=== PATIENT | male | born 2000 | race Caucasian/White ===

== ENCOUNTER 2025-06-07 15:24 | Emergency (ER) | payer OTHER, SELFPAY ==
[2025-06-07 15:25] VITALS: BP 159/85; PULSE 85; RESP 18; TEMP 36.6; O2SAT 99
--- OUTSIDE RECORDS SUMMARY | 2025-06-07 15:26 | XMS_ITS | Clinical Summary ---
Author Organization [facility] [employer] Address [address] [facility] [place] [address] Care Team Providers Care Carburetor Rebuilder Name Role Phone Unavailable Primary Care Provider Unavailabl e Source Comments [facility],non-owned Affiliates and Associated Physician Practices is amultiple site organization consisting of ambulatory clinics and hospital sitesin [place], [place], [place] and [place]. This disclosure is being madepursuant to the Care Everywhere program and may not contain all information available regarding this patient. Last updated 18.[facility] [employer] Allergies Active Allergy Reactions Criticality Noted Date Comments Cephalexin 11/01/2017 Sulfamethoxazole W-Trimethoprim 02/2017 Medications * Be aware that medications may not be up to date on this document. Alwaysverify current medications with the patient. 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 Gender Identity Not on file Sexual Orientation Not on file Last Filed Vital Signs Vital Sign Reading Time Taken Comments Blood Pressure 126/60 11/01/2017 2:08 PM REGIONAL TRUCK DRIVER Pulse 94 11/01/2017 2:08 PM REGIONAL TRUCK DRIVER Temperature 37.5 C (99.5 F) 11/01/2017 2:08 PM REGIONAL TRUCK DRIVER Respiratory Rate 16 11/01/2017 2:08 PM REGIONAL TRUCK DRIVER Oxygen Saturation 98% 11/01/2017 2:08 PM REGIONAL TRUCK DRIVER Inhaled Oxygen Concentration - - Weight 72.6 kg (160 lb) 11/01/2017 2:08 PM REGIONAL TRUCK DRIVER Height 177.8 cm (5' 10) 11/01/2017 2:08 PM REGIONAL TRUCK DRIVER Body Mass Index 22.96 11/01/2017 2:08 PM REGIONAL TRUCK DRIVER Plan of Treatment Health Maintenance Due Date Last Done Comments HIV SCREENING 2013 HPV VACCINE (1 - Male 3-dose series) 2013 HEPATITIS C SCREENING 08/14/2016 DTAP/TDAP/TD VACCINES (1 - Tdap) 2017 HEPATITIS B VACCINE (1 of 3 - 19+ 3-dose series) 2017 COVID-19 VACCINE (1 - 2023-2 5 season) 2024 DEPRESSION SCREENING 11/29/2024 INFLUENZA VACCINE (Season Ended) 2025 ZOSTER VACCINE (1 of 2) 2048 HIB VACCINE Aged Out No longer eligi ble based on patient's age to complete this topic MENINGOCOCCAL (Group B) VACC INE SHARED DECISION-MAKING Aged Out No longer eligibl e based on patient's age to complete this topic MENINGOCOCCAL GROUPS A/C/Y/W VACCINE Aged Out No longer eligible b ased on patient's age to complete this topic PNEUMOCOCCAL VACCINE Aged Out No long er eligible based on patient's age to complete this topic Insurance [facility]
--- OUTSIDE RECORDS SUMMARY | 2025-06-07 15:26 | XMS_ITS | Clinical Summary ---
Author Organization [facility] Address [address] [place], [place] [id number] Care Team Providers Care Cosmetic Assembler Name Role Phone Kirti Freedman Nicki [facility] Primary Care Provider + Social History Tobacco Use Types Packs/Day Years Used Date Smoking Tobacco: Never Assessed Sex and Gender Information Value Date Recorded Sex Assigned at Not on file Legal Sex Male 7:55 PM CDT Gender Identity Not on file Sexual Orientation Not on file Plan of Treatment Health Maintenance Due Date Last Done Comments Annual Physical 2001 HPV Vaccines (1 - Male 3-dose series) 2013 Hepatitis C 2016 DTaP, Tdap and Td Vaccines (7 - Td or Tdap) 06/17/2020 06/17/2010, 04/14/2004, 12/04/1999, Additional history exists COVID-19 Vaccine ( season) 2024 Hepatitis B Vaccines Completed 02/17/1999, 1998, 1998 Meningococcal Vaccine Completed 05/28/2016, 010 Meningococcal B Vaccine Aged Out No l onger eligible based on patient's age to complete this topic Pneumococcal Vaccine: Pediatrics (0 to 5 Years) and At-Risk Patients (6 to 49 Years) Aged Out No longer eligible based on patient's age to complete this topic RSV Immunizations Under 20 Months Aged Out No longer eligible based on patient's age to complete this topic Insurance [facility] Care Teams Cosmetic Assembler Relationship Specialty Start Date End Date Kirti Freedman, [facility]- [address], [address] [place] [id number] PCP - General Nurse Practitioner Family 09/20/2305/29
--- OUTSIDE RECORDS SUMMARY | 2025-06-07 15:26 | XMS_ITS | Referral Summary ---
Author Organization [facility] [address] Address [address] [place] [address] Phone Care Team Providers Care Lockstitch Tunnel Elastic Operator Name Role Phone Abner Pierre MD Primary Care Provider +1- [phone] Allergies Active Allergy Reactions Criticality Noted Date Comments Cefprozil Hives Reaction: Hives, Clindamycin Rash Reaction: Rash, Penicillins Rash Medium 11/08/2017 Sulfamethoxazole Other (See comments) Reaction: little red bumps, Trimethoprim Other (See comments) Reaction: little red bumps, Medications No known medications Active Problems Problem Noted Date Diagnosed Date Routine physical examination 09/30/2017 Tremors of nervous system 09/30/2017 Acne vulgaris 09/30/2017 Immunizations Immunization Administration Dates Next Due DTaP / HiB 12/04/1999 DTaP 5 Pertussis 04/14/2004,02/17/1999, 9,1998 Hep B, Adolescent or Pediatric 02/17/1999,1997,1998 Hib (HbOC) 02/17/1999,1998,1998 IPV 04/14/2004,12/04/1999,1998 ,1998 MMR 04/14/2004,08/25/1999 Meningococcal MCV4P (Menactra) 05/28/2016,2009 Tdap 06/17/2010 Varicella 08/25/1999 Social History Tobacco Use Types Packs/Day Years Used Date Smoking Tobacco: Never Smokeless Tobacco: Never Personal Safety Answer Date Recorded Getting School Help Needed Not on file 02/12 Sex and Gender Information Value Date Recorded Sex Assigned at Not on file 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 Gender Identity Not on file Sexual Orientation Not on file Last Filed Vital Signs Vital Sign Reading Time Taken Comments Blood Pressure 120/68 09/30/2017 11:46 AM CDT Pulse 70 03/22/2019 2:31 PM CDT Temperature 36.5 C (97.7 F) 03/22/2019 2:31 PM CDT Respiratory Rate 18 03/22/2019 2:31 PM CDT Oxygen Saturation 98% 03/22/2019 2:31 PM CDT Inhaled Oxygen Concentration - - Weight 79.8 kg (176 lb) 03/22/2019 2:31 PM CDT Height 175.9 cm (5' 9.25) 09/30/2017 11:46 AM C DT Body Mass Index 25.8 09/30/2017 11:46 AM CDT Plan of Treatment Not on file Insurance [employer] Care Teams Lockstitch Tunnel Elastic Operator Relationship Specialty Start Date End Date Abner Pierre MD [address] [place] [address] PCP - General 05/18/17
--- OUTSIDE RECORDS SUMMARY | 2025-06-07 15:26 | XMS_ITS | Clinical Summary ---
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
[2025-06-07] MEDS: TETRACAINE HCL 0.5% OPHTH SOLN 4 ML BTL 1 DROP EACH EYE (15:31)
[2025-06-07] MEDS: FLUORESCEIN SOD 1 MG/STRIP EACH EYE (15:31)
--- NOTE | 2025-06-07 15:40 | ED.EYEPROB ---
HPI - Eye Problem General Chief complaint: Eye Problems Stated complaint: bleach in eye Time Seen by Provider: 06/07/25 15:25 Source: patient Mode of arrival: ambulatory History of Present Illness HPI Narrative: this is a 24-year-old male that was splashed with bleach in his eyes bilaterally and patient did go to the Eye station irrigated extensively and currently is having some redness and irritation with no drainage no blurry vision no visual defects. chief complaint: eye pain and eye redness Onset (ago): hour(s) Onset description: sudden Location: both eyes Eye Symptoms: burning and redness Place: work Severity: mild Related Data Allergies Allergy/AdvReac Type Severity Reaction Status Date / Time No Known Allergies Allergy Verified 06/07/25 15:25 Review of Systems Review of Systems: All systems reviewed & are unremarkable except as noted in HPI and below PMFSH Past Medical History Medical History Lipoma of right lower extremity Essential tremor Social History Social History Smoking status: Never smoker Alcohol intake: current Drinks per week: 1 Substance use: never Do You Feel Safe in your Home?: Yes Lack of Transportation: No Lack of Food: Never True Current Housing: I Have Housing Concerned About Future Housing: No Difficulty Paying Gas/Electric Bills: No Difficulty Paying for Meds: No Currently Unemployed: No Education: Bachelor's Degree Difficulty w/ Childcare or Family Care: No Living arrangements: with family Occupation/Education: occupation Gender identity (if verbalized by the patient): Male Sexual Orientation (if Verbalized by the Patient): Straight or Heterosexual Spiritual care concerns: No Agree to blood products: Yes Exam Const: General: healthy appearing and no acute distress Nutritional Appearance: well nourished Orientation/consciousness: patient oriented x3 Limitations: no limitations HENMT: Head: normal to inspection Eyes: Conjunctivae: conjunctival abnormality Direct Ophthalmoscopy: no photophobia Neck: Neck: normal visual inspection Chest: Chest palpation & inspection: normal inspection of the chest Resp: Effort & Inspection: normal respiratory effort Auscultation: clear to auscultation bilaterally Cardio: Rate: regular rate Rhythm: regular rhythm Skin: General skin exam: normal color Rashes: no rashes Wounds: no wounds Neuro: General: patient oriented x3 Cranial nerves: Yes Nystagmus not present Extrem: General: normal to inspection Course Course Emergency Course: Patient had tetracaine in bilateral eyes and fluorescein stain and black light did not show any corneal abrasions will send patient home with some antibiotic eyedrops and follow up with his primary care physician. Vital Signs Vital signs: Vital Signs Temperature 36.6 C 06/07/25 15:25 Pulse Rate 85 06/07/25 15:25 Respiratory Rate 18 06/07/25 15:25 Blood Pressure 159/85 H 06/07/25 15:25 Pulse Oximetry 99 06/07/25 15:25 Oxygen Delivery Room Air 06/07/25 15:25 Temperature 36.6 C 06/07/25 15:25 Pulse Rate 85 06/07/25 15:25 Respiratory Rate 18 06/07/25 15:25 Blood Pressure 159/85 H 06/07/25 15:25 Pulse Oximetry 99 06/07/25 15:25 Oxygen Delivery Room Air 06/07/25 15:25 Procedures FB Removal Eye Foreign Body #1: Foreign Body Removal Date: 06/07/25 Time Out performed: Yes Location: eye (L) and eye (R) Topical anesthetic used: tetracaine Foreign body: other ( Bleach) Technique: irrigation and eye wash bottle Procedure performed under: direct visualization with magnification Critical Care Time Critical Care Time Critical Care Time: No Discharge Plan Discharge Clinical Impression: Acute chemical conjunctivitis of both eyes Patient Disposition: Home Condition: Stable Instructions: Antibiotic Form, Conjunctivitis (ED) Additional Instructions: take medication as prescribed and follow with primary care physician within the next week for further evaluation and treatment. Patient Language: Azerbaijani Prescriptions: New neomycin-polymyxin B-dexameth [Maxitrol] 3.5mg/mL-10,000 unit/mL-0.1 % drops,suspension 1 drp EACH EYE Q4H 7 Days Qty: 5 0RF Follow-up/Referrals: Baron Lopez DO [Primary Care Provider] - Time of Disposition: 15:46
[2025-06-07 16:05] VITALS: BP 159/85; PULSE 85; RESP 18; TEMP 36.6; O2SAT 99
--- OUTSIDE RECORDS SUMMARY | 2025-06-07 16:07 | XMS_ITS | Clinical Summary ---
Author Organization [facility] Address [address] [place], [place] [id number] Care Team Providers Care Yarn Weigher Name Role Phone Kirti Freedman Nicki [facility] Primary Care Provider + Social History Tobacco [...] patient's age to complete this topic Insurance [facility] Care Teams Yarn Weigher Relationship Specialty Start Date End Date Kirti Freedman, [facility]- [address], [address] [place] [id number] PCP - General Nurse Practitioner Family 09/20/2305/29
--- OUTSIDE RECORDS SUMMARY | 2025-06-07 16:07 | XMS_ITS | Clinical Summary ---
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
--- OUTSIDE RECORDS SUMMARY | 2025-06-07 16:07 | XMS_ITS | Referral Summary ---
Author Organization 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
--- OUTSIDE RECORDS SUMMARY | 2025-06-07 16:07 | XMS_ITS | Clinical Summary ---
Author Organization [facility] [employer] Address [address] [place] [address] Care Team Providers Care Aluminum Siding Mechanic Name Role Phone Unavailable Primary Care Provider Unavailabl e Source Comments [facility],non-owned Affiliates and Associated Physician Practices is amultiple site organization consisting of ambulatory clinics and hospital sitesin [place], [place], [place] and [place]. This disclosure is being madepursuant to the Care Everywhere program and may not contain all information available regarding this patient. 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 Gender Identity Not on file Sexual Orientation Not on file Last Filed Vital Signs Vital Sign Reading Time Taken Comments Blood Pressure 126/60 11/01/2017 2:08 PM COOK HELPER PASTRY Pulse 94 11/01/2017 2:08 PM COOK HELPER PASTRY Temperature 37.5 C (99.5 F) 11/01/2017 2:08 PM COOK HELPER PASTRY Respiratory Rate 16 11/01/2017 2:08 PM COOK HELPER PASTRY Oxygen Saturation 98% 11/01/2017 2:08 PM COOK HELPER PASTRY Inhaled Oxygen Concentration - - Weight 72.6 kg (160 lb) 11/01/2017 2:08 PM COOK HELPER PASTRY Height 177.8 cm (5' 10) 11/01/2017 2:08 PM COOK HELPER PASTRY Body Mass Index 22.96 11/01/2017 2:08 PM COOK HELPER PASTRY Plan of Treatment Health Maintenance Due Date [...] patient's age to complete this topic Insurance [facility]
== END 2025-06-07 16:05 | disposition home or self-care (01) ==
LOC: CHSED 16:05
PROVIDERS: Emergency Provider Emergency Medicine; PCP Family Medicine
DX: H10.213 Acute toxic conjunctivitis, bilateral (principal)
CPT/HCPCS: 99283